=== PATIENT | female | born 1985 | race Caucasian/White ===

== ENCOUNTER 2020-09-26 13:29 | Emergency (ER) | payer OTHER ==
[~2020-09-26] VITALS: Ht 160 cm; Wt 54.4 kg
--- NOTE | 2020-09-26 13:40 | NUR ---
Dr Banegas at the bedside for MSE.
[2020-09-26] MEDS ORDERED: NAPR-1164 PO (14:24)
[2020-09-26 14:47] VITALS: BP 117/82
--- NOTE | 2020-09-26 14:48 | NUR ---
Patient discharged to home in stable condition. Written and verbal after care instructions given. Patient verbalizes understanding of instructions. Stressed follow up or return to ER for worsening s/s.
== END 2020-09-26 14:48 | disposition home or self-care (01) ==
LOC: ER 13:29
DX: S92.212A Displaced fracture of cuboid bone of left foot, initial encounter for closed fracture (principal); W22.8XXA Striking against or struck by other objects, initial encounter; Y92.89 Other specified places as the place of occurrence of the external cause
CPT/HCPCS: 73630; A4663